=== PATIENT | female | born 1980 | race Two or more races ===

== ENCOUNTER 2017-10-24 14:41 | Outpatient (CLI) | payer OTHER ==
[~2017-10-24 14:41] MED LIST: ROCALTROL0.25 MCG; SYNTHROID112 MCG; VOLTAREN-XR100 MG PO
== END 2017-10-24 15:58 | disposition home or self-care (01) ==
LOC: MAMO-SONO 14:41
DX: E89.0 Postprocedural hypothyroidism (principal); C73 Malignant neoplasm of thyroid gland; N63.10 Unspecified lump in the right breast, unspecified quadrant

== ENCOUNTER 2018-10-01 14:01 | Outpatient (CLI) | payer OTHER | END 2018-10-01 14:04 | disposition home or self-care (01) | LOC: SONOGRAMA 14:01 | DX: E89.0 Postprocedural hypothyroidism (principal); C73 Malignant neoplasm of thyroid gland ==

== ENCOUNTER 2020-09-24 10:53 | Outpatient (CLI) | payer OTHER | END 2020-09-24 13:51 | disposition home or self-care (01) | LOC: SONOGRAMA 10:53 → MAMO-SONO 09-25 10:00 | PROVIDERS: ATTEND Internal Medicine | DX: E89.0 Postprocedural hypothyroidism (principal); C73 Malignant neoplasm of thyroid gland ==

== ENCOUNTER 2021-08-23 10:29 | Outpatient (CLI) | payer OTHER | END 2021-08-24 13:33 | disposition home or self-care (01) | LOC: MAMO-SONO 10:29 | PROVIDERS: ATTEND Internal Medicine | DX: N60.19 Diffuse cystic mastopathy of unspecified breast (principal) ==

== ENCOUNTER 2023-10-12 10:33 | Outpatient (CLI) | payer OTHER | END 2023-10-12 10:42 | disposition home or self-care (01) | LOC: MAMO-SONO 10:33 | PROVIDERS: ATTEND Internal Medicine | DX: N63.21 Unspecified lump in the left breast, upper outer quadrant (principal) ==